=== PATIENT | female | born 1965 | race Caucasian/White ===

== ENCOUNTER 2016-11-27 21:02 | Emergency (ER) | payer OTHER ==
--- NOTE | 2016-11-27 21:08 | ED Physician Documentation ---
General Adult - HISTORIAN Historian: patient - HPI Stated Complaint: nausea/vomiting Chief Complaint: General Adult Onset: days ago Timing: still present Severity: moderate Further Comments: yes (Pt is a 51 yo female who has had n/v x 3 days, with chills and malaise, some dizziness.) - ROS CONST: fever, weakness, chills EYES/ENT: none CVS/RESP: none GI/: vomiting, nausea MS/SKIN/LYMPH: none NEURO/PSYCH: dizziness - PAST HX Past History: other (anxiety) Allergies/Adverse Reactions: Allergies Allergy/AdvReac Type Severity Reaction Status Date / Time Penicillins Allergy Intermediate Rash Verified 11/27/16 21:50 Home Medications: Ambulatory Orders Medication Instructions Recorded Citalopram Hydrobromide 20 mg PO D 11/27/16 [Citalopram HBr] - SOCIAL HX Smoking History: non-smoker - FAMILY HX Family History: No - REVIEWED ASSESSMENTS Nursing Assessment Reviewed: Yes Vitals Reviewed: Yes Progress - Progress Progress: 1 L NS bolus x 2 Zofran 4 mg IV GI cocktail improved/resolved. General Adult Physical Exam - PHYSICAL EXAM GENERAL APPEARANCE: anxious EENT: eye inspection normal, pharynx normal, dry mucous membranes NECK: normal inspection, supple RESPIRATORY: no resp distress, chest non-tender, breath sounds normal CVS: tachycardia ABDOMEN: soft, normal bowel sounds, tenderness (diffuse, mild) BACK: normal inspection, no CVA tenderness SKIN: warm/dry, normal color EXTREMITIES: non-tender, normal range of motion, no evidence of injury NEURO: oriented X3, motor nml, sensation nml, other (anxious) Discharge Clincal Impression: Dehydration Nausea & vomiting Qualifiers: Vomiting type: unspecified Vomiting Intractability: non-intractable Qualified Code(s): R11.2 - Nausea with vomiting, unspecified GERD (gastroesophageal reflux disease) Qualifiers: Esophagitis presence: without esophagitis Qualified Code(s): K21.9 - Gastro- esophageal reflux disease without esophagitis Referrals: Primary Doctor,No [Primary Care Provider] - Additional Instructions: Resume omeprazole or [id number] pepcid as directed. Home Medications: Ambulatory Orders Citalopram Hydrobromide [Citalopram HBr] 20 mg PO D 11/27/16 Condition: Good Disposition: HOME, SELF-CARE Decision to Admit: NO Decision Time: 00:28
[2016-11-27] MEDS: 0.9 % SODIUM CHLORIDE 1,000 ML IV ONE ×2 (21:45→23:35)
[2016-11-27] MEDS: FAMOTIDINE/PF 20 MG/2 ML VIAL IVP ONE (21:50)
[2016-11-27] MEDS: ONDANSETRON HCL/PF 4 MG/ 2ML VIAL IVP ONE (21:50)
[2016-11-27 22:01] LABS: BASOPHILS % 0.6 (0.0-1.5); EOSINOPHILS % 0.8 % (0.0-6.8); LYMPHOCYTES # 0.5 # k/uL (0.6-4.0); MEAN CORPUSCULAR HEMOGLOBIN 28.9 pg (28.0-34.0); MONOCYTES # 0.2 # k/uL (0.0-0.9); MONOCYTES % 4.2 % (0.0-11.0); NEUTROPHILS # 3.2 # k/uL (1.4-7.7)
[2016-11-27 22:07] LABS: eGFR (African) > 60; eGFR (Non-African) > 60
[2016-11-27] MEDS ORDERED: Lidocaine 2%Visc 15ml 20 MG/ML UDC ONE (23:35)
[2016-11-27] MEDS ORDERED: MAGNESIUM HYDROXIDE/AL HYDROX 30 ML UDC PO ONE (23:35)
[2016-11-27] MEDS: MAG HYDROX/AL HYDROX/SIMETH 30 ML, Lidocaine 2%Visc 15ml 20 MG, PHENobarb/HYOSCY/ATROPI... PO ONE ×3 (23:40)
[2016-11-28 01:43] VITALS: BP 102/71
[2016-11-28 06:44] LABS: APPEARANCE,URINE CLEAR (CLEAR); COLOR,URINE YELLOW (YELLOW); OCCULT BLOOD,URINE 1+ (NEGATIVE); PH URINE 6.5 (5.0 - 8.0); UROBILINOGEN URINE 0.2 Eu (0.2-1.0)
== END 2016-11-28 00:47 | disposition home or self-care (01) ==
LOC: ED 21:02
DX: R11.2 Nausea with vomiting, unspecified (principal); E86.0 Dehydration; K21.9 Gastro-esophageal reflux disease without esophagitis
CPT/HCPCS: 80053; 81002; 85025; A9270; J2405; J7030; 96361; 96374; 99283; S0028; S1016